=== PATIENT | female | born 1970 | race Caucasian/White ===

== ENCOUNTER → 2016-09-14 | Outpatient (CLI) | payer BC ==
--- NOTE | 2016-09-14 21:55 | REP ---
Clinical: Injury. Technique: Internal rotation, external rotation, and Y view. Findings: Age-related changes involving the acromioclavicular and glenohumeral joints are noted. There is no evidence for acute or healed fracture/dislocation. No osteophytosis, periarticular calcifications, or subacromial space narrowing. Impression: Age-related changes to the right shoulder. No acute fracture dislocation. Signed by Huber Huerta MD 09/14/2016 09:47 P
== END ==
LOC: M WUC 17:21
PROVIDERS: ATTEND Physician Assistant
DX: S40.011A Contusion of right shoulder, initial encounter (principal); X58.XXXA Exposure to other specified factors, initial encounter; Y92.9 Unspecified place or not applicable; Y93.9 Activity, unspecified

== ENCOUNTER → 2017-02-18 | Outpatient (CLI) | payer BC ==
--- NOTE | 2017-02-18 09:24 | REP ---
Yvan Keen chest PA and lateral views: There are no comparisons. The lung barr are clear. The cardiac size is normal The lady, mediastinum, and bony thorax are unremarkable. Impression: Negative PA and lateral chest. Signed by Scott Moralez MD 02/18/2017 09:16 A
[2017-02-18 18:49] LABS: ALBUMIN/GLOBULIN RATIO 1.33 (1.00-1.93); ALKALINE PHOSPHATASE 54 U/L (45-117); ALT/SGPT 23 U/L (12-78); ANION GAP 8 MEQ/L (8-16); AST/SGOT 15 U/L (15-37); BILIRUBIN,TOTAL 0.3 MG/DL (0.2-1.0); BLOOD UREA NITROGEN 11 MG/DL (7-18); CALCIUM LEVEL 9.3 MG/DL (8.5-10.1); CARBON DIOXIDE LEVEL 26 MEQ/L (21-32); CHLORIDE LEVEL 110 MEQ/L (98-107); CHOLESTEROL LEVEL 179 MG/DL (<200); CREATININE FOR GFR 0.68 MG/DL (0.55-1.02); GLOMERULAR FILTRATION RATE > 60.0 (>58); GLUCOSE, FASTING 79 MG/DL (70-105); POTASSIUM SERUM 5.1 MEQ/L (3.5-5.1); SODIUM LEVEL 144 MEQ/L (136-145); TRIGLYCERIDES LEVEL 58 MG/DL (<150)
[2017-02-18 19:03] LABS: BASO # 0.1 K/mm3 (0.0-0.2); BASO % 0.9 % (0.0-1.0); EOS # 0.2 K/mm3 (0.0-0.50); EOS % 2.5 % (0.0-3.0); LYMPH # 2.3 K/mm3 (1.5-4.5); LYMPH % 30.1 % (24.0-44.0); MEAN CORPUSCULAR HGB CONC 33.1 g/dl (32.0-36.5); MEAN CORPUSCULAR VOLUME 93.8 fl (80.0-96.0); MONO # 0.5 K/mm3 (0.0-0.8); MONO % 6.5 % (0.0-5.0); NEUTROPHILS # 4.4 K/mm3 (1.8-7.7); NEUTROPHILS % 58.3 % (36.0-66.0); RED CELL DISTRIBUTION WIDTH 13.9 % (11.5-14.5); WHITE BLOOD COUNT 7.5 K/mm3 (4.0-10.0)
== END ==
LOC: M WUC 08:54
PROVIDERS: ATTEND Physician Assistant Medical
DX: E78.2 Mixed hyperlipidemia (principal); E55.9 Vitamin D deficiency, unspecified; Z72.0 Tobacco use

== ENCOUNTER → 2018-02-03 | Outpatient (CLI) | payer BC, OTHER ==
[2018-02-03 10:16] LABS: BASO # 0.1 10^3/uL (0.0-0.2); BASO % 0.8 % (0.0-1.0); EOS # 0.2 10^3/uL (0.0-0.50); EOS % 1.5 % (0.0-3.0); HEMATOCRIT 39.1 % (36.0-47.0); HEMOGLOBIN 13.2 g/dl (12.0-15.5); IMMATURE GRANULOCYTE % 0.3 % (0-3.0); LYMPH % 19.9 % (24.0-44.0); MEAN CORPUSCULAR HEMOGLOBIN 30.3 pg (27.0-33.0); MEAN CORPUSCULAR HGB CONC 33.8 g/dl (32.0-36.5); MEAN CORPUSCULAR VOLUME 89.9 fl (80.0-96.0); MONO # 0.8 10^3/uL (0.0-0.8); MONO % 7.7 % (0.0-5.0); NEUTROPHILS # 6.8 10^3/uL (1.8-7.7); NEUTROPHILS % 69.8 % (36.0-66.0); PLATELET COUNT, AUTOMATED 377 10^3/uL (150-450); RED BLOOD COUNT 4.35 10^6/uL (4.00-5.40); RED CELL DISTRIBUTION WIDTH 14.1 % (11.5-14.5); WHITE BLOOD COUNT 9.8 10^3/uL (4.0-10.0)
[2018-02-03 10:59] LABS: ALBUMIN 3.9 GM/DL (3.2-5.2); ALKALINE PHOSPHATASE 60 U/L (45-117); ALT/SGPT 16 U/L (12-78); ANION GAP 8 MEQ/L (8-16); AST/SGOT 11 U/L (7-37); BILIRUBIN,TOTAL 0.2 MG/DL (0.2-1.0); BLOOD UREA NITROGEN 10 MG/DL (7-18); CALCIUM LEVEL 8.7 MG/DL (8.5-10.1); CARBON DIOXIDE LEVEL 25 MEQ/L (21-32); CHLORIDE LEVEL 110 MEQ/L (98-107); CHOLESTEROL LEVEL 158 MG/DL (<200); CHOLESTEROL RISK RATIO 2.358 (<5); CREATININE FOR GFR 0.58 MG/DL (0.55-1.30); GLOMERULAR FILTRATION RATE > 60.0 (>58); GLUCOSE, FASTING 79 MG/DL (70-100); HDL CHOLESTEROL 67 MG/DL (>40); NON-HDL-C 91 MG/DL; POTASSIUM SERUM 4.5 MEQ/L (3.5-5.1); SODIUM LEVEL 143 MEQ/L (136-145); TOTAL PROTEIN 6.9 GM/DL (6.4-8.2); TRIGLYCERIDES LEVEL 70 MG/DL (<150)
[2018-02-05 11:19] LABS: TOTAL 25(OH) VITAMIN D 38.7 NG/ML (30.0-100.0)
== END ==
LOC: M LAB 08:59
DX: E55.9 Vitamin D deficiency, unspecified (principal); Z13.220 Encounter for screening for lipoid disorders
CPT/HCPCS: 84443

== ENCOUNTER → 2018-06-01 | Outpatient (CLI) | payer BC | LOC: M WHC 12:44 | DX: Z12.31 Encounter for screening mammogram for malignant neoplasm of breast (principal) | CPT/HCPCS: 77067 ==

== ENCOUNTER → 2019-10-24 | Outpatient (CLI) | payer BC, OTHER ==
--- NOTE | 2019-10-24 15:11 | REPMRS ---
Patient History The patient states she had a clinical breast exam in October 2019. Family history of breast cancer at age 65 in paternal grandmother, breast cancer at age 58 in paternal aunt. Retro-pectoral silicone gel implants in both breasts, June 2017. Benign stereotactic core biopsy of the left breast, December 02, 2008. Took hormonal contraceptives for 4 years. Digital Woman Screen Mammo: October 24, 2019 - Exam #: [id number] Bilateral CC and MLO view(s) were taken. Technologist: Cassie Snow Technologist Prior study comparison: June 01, 2018, bilateral digital woman screen mammo performed at [facility]. July 21, 2016, digital woman screen mammo performed at [facility]. July 01, 2015, digital woman screen mammo performed at [facility]. FINDINGS: The breast tissue is heterogeneously dense. This may lower the sensitivity of mammography. There is a needle biopsy marker clip in the left breast. The visualized implant margins are smooth. Breast parenchymal density pattern is essentially symmetric. No dominant mass, grouped microcalcification, or architectural distortion is evident on either side. 3-D tomosynthesis shows no additional findings. No significant changes when compared with prior studies. Assessment: BI-RADS/ACR category 2 mammogram. Benign Findings. Recommendation Routine screening mammogram of both breasts in 1 year (for women over age 40). This patient's Lifetime Breast Cancer RIsk is estimated at 15.5 %. This mammogram was interpreted with the aid of an FDA-approved computer-aided dectection system. Electronically Signed By: Hal Olivares MD 10/24/19 [id number]
== END ==
LOC: M WHC 12:43
PROVIDERS: ATTEND Nurse Practitioner Family
DX: Z12.31 Encounter for screening mammogram for malignant neoplasm of breast (principal)
CPT/HCPCS: 77063; 77067; 87624; G0123

== ENCOUNTER → 2019-10-24 | Outpatient (CLI) | payer BC, OTHER | LOC: M PLALAB 13:51 | PROVIDERS: ATTEND Nurse Practitioner Family | DX: Z13.79 Encounter for other screening for genetic and chromosomal anomalies (principal) ==

== ENCOUNTER → 2020-09-14 | Outpatient (CLI) | payer BC, OTHER ==
[~2020-09-14] MED LIST: PROHANCE 279.3MG/ML 15ML VIAL As Ordered ONE
--- NOTE | 2020-09-15 09:14 | REP ---
INDICATION: HIGH RISK BREAST CANCER. COMPARISON: Mammogram 10/24/2019. TECHNIQUE: Three Pia MRI imaging was performed with a dedicated breast coil. Axial, coronal, and sagittal T1 and T2 weighted scans were obtained with and without fat saturation in the usual fashion. The study includes dynamically acquired post gadolinium-enhanced imaging with image subtraction. Maximum intensity projection and multi planar reformation imaging is included as well. This study is interpreted with the aid of Pylba, an FDA approved computer aided detection (CAD) software program, on a dedicated breast MRI workstation. The gadolinium enhancement dose is 11 mL of intravenous ProHance. FINDINGS: There is moderate fibroglandular tissue bilaterally. There are bilateral breast implants. There is no evidence of intracapsular or extracapsular rupture. There is no evidence of axillary adenopathy bilaterally. Multiple subcentimeter cysts are seen throughout both breasts. There is mild background parenchymal enhancement. There is a small intramammary lymph node in the upper outer quadrant of the right breast. There is no suspicious enhancing mass or morphologic abnormality. IMPRESSION: BI-RADS category 2, benign bilateral breast MRI. Multiple subcentimeter cysts seen in each breast. No suspicious enhancing mass or morphologic abnormality. Bilateral breast implants with no evidence of intracapsular or extracapsular rupture. <Electronically signed by Scott Hicks > 09/15/20 [id number]
== END ==
LOC: M RAD 15:45
PROVIDERS: ATTEND Nurse Practitioner Family
DX: N60.11 Diffuse cystic mastopathy of right breast (principal); N60.12 Diffuse cystic mastopathy of left breast; Z91.89 Other specified personal risk factors, not elsewhere classified
CPT/HCPCS: A9576; C8908

== ENCOUNTER 2020-12-22 12:52 | Emergency (ER) | payer BC, OTHER ==
[~2020-12-22] VITALS: Ht 160 cm; Wt 54.5 kg
[2020-12-22 13:45] LABS: BASO # 0.1 10^3/uL (0.0-0.2); BASO % 0.9 % (0.0-1.0); EOS # 0.1 10^3/uL (0.0-0.5); EOS % 1.3 % (0.0-3.0); HEMATOCRIT 38.6 % (36.0-47.0); HEMOGLOBIN 12.5 g/dl (12.0-15.5); LYMPH # 2.5 10^3/uL (1.5-5.0); LYMPH % 36.6 % (24.0-44.0); MEAN CORPUSCULAR HEMOGLOBIN 29.8 pg (27.0-33.0); MEAN CORPUSCULAR HGB CONC 32.4 g/dl (32.0-36.5); MEAN CORPUSCULAR VOLUME 91.9 fl (80.0-96.0); MONO # 0.4 10^3/uL (0.0-0.8); MONO % 5.3 % (2.0-8.0); NEUTROPHILS # 3.7 10^3/uL (1.5-8.5); NEUTROPHILS % 55.5 % (36.0-66.0); PLATELET COUNT, AUTOMATED 312 10^3/uL (150-450); WHITE BLOOD COUNT 6.8 10^3/uL (4.0-10.0)
[2020-12-22] MEDS ORDERED: NS 1,000 ML IV ONE (14:15)
[2020-12-22 14:20] LABS: BLOOD UREA NITROGEN 9 MG/DL (7-18); CALCIUM LEVEL 8.9 MG/DL (8.5-10.1); CARBON DIOXIDE LEVEL 26 MEQ/L (21-32); CHLORIDE LEVEL 107 MEQ/L (98-107); CREATININE FOR GFR 0.58 MG/DL (0.55-1.30); FREE T4 0.88 NG/DL (0.76-1.46); GLOMERULAR FILTRATION RATE > 60.0 (>58); GLUCOSE, FASTING 114 MG/DL (70-100); POTASSIUM SERUM 3.7 MEQ/L (3.5-5.1); SODIUM LEVEL 143 MEQ/L (136-145)
[2020-12-22 16:13] VITALS: BP 91/55
--- NOTE | 2020-12-23 07:55 | ECGEPIP ---
[facility] - ED Test Date: 2020-12-22 Pat Name: CHAVEZ TATE Department: Room: - Gender: Female Reconciler: marty : 1970 Requested By: Nicole Mendoza Order Number: [id number] Reading MD: Kwaku Daniel Measurements Intervals [place] Rate: 61 P: 77 UT: 160 QRS: 76 QRSD: 88 T: 81 QT: 404 QTc: 406 Interpretive Statements Normal sinus rhythm with sinus arrhythmia Minimal voltage criteria for LVH, may be normal variant ( Braden product ) NO PRIORS FOR COMPARISON Electronically Signed on 12-23-2020 7:55:24 EDT by Kwaku Daniel
== END 2020-12-22 16:29 | disposition home or self-care (01) ==
LOC: M ED 12:52 → EDBD 12:52 → M ED 16:29
DX: R55 Syncope and collapse (principal); F17.200 Nicotine dependence, unspecified, uncomplicated

== ENCOUNTER → 2021-01-18 | Outpatient (CLI) | payer BC, OTHER ==
--- NOTE | 2021-01-18 17:48 | REPVR ---
PROCEDURE INFORMATION: Exam: CT Head Without Contrast Exam date and time: 01/18/2021 5:24 PM Age: 50 years old Clinical indication: Syncope and collapse TECHNIQUE: Imaging protocol: Computed tomography of the head without contrast. Axial and coronal reformatted images were created and reviewed. Radiation optimization: All CT scans at this facility use at least one of these dose optimization techniques: automated exposure control; mA and/or kV adjustment per patient size (includes targeted exams where dose is matched to clinical indication); or iterative reconstruction. COMPARISON: No relevant prior studies available. FINDINGS: Brain: No CT evidence of acute intracranial hemorrhage or acute territorial infarction. No significant mass effect or midline shift. Basal cisterns patent. Cerebral ventricles: Normal in size and configuration. Bones/joints: No acute osseous abnormality. Paranasal sinuses: Unremarkable. No fluid levels. Mastoid air cells: Grossly unremarkable. Soft tissues: Grossly unremarkable. IMPRESSION: No CT evidence of acute intracranial pathology. Electronically signed by: Jerald Rader On 01/18/2021 17:48:28 PM
== END ==
LOC: M RAD 17:19
PROVIDERS: ATTEND Nurse Practitioner Family
DX: R55 Syncope and collapse (principal)

== ENCOUNTER → 2021-07-04 | Outpatient (CLI) | payer BC, OTHER ==
[2021-07-04 10:43] LABS: HEMOGLOBIN A1c 5.3 %
[2021-07-05 10:02] LABS: TOTAL 25(OH) VITAMIN D 24.1 NG/ML (30.0-100.0)
== END ==
LOC: M LAB 10:04
PROVIDERS: ATTEND Nurse Practitioner Family
DX: E55.9 Vitamin D deficiency, unspecified (principal); Z13.220 Encounter for screening for lipoid disorders

== ENCOUNTER → 2021-08-04 | Outpatient (CLI) | payer BC, OTHER ==
--- NOTE | 2021-08-04 16:19 | REPMRS ---
Patient History The patient states she had a clinical breast exam in July 2021. Patient is postmenopausal. Family history of breast cancer at age 65 in paternal grandmother, breast cancer at age 58 in paternal aunt. Retro-pectoral silicone gel implants in both breasts, June 2017. Benign stereotactic core biopsy of the left breast, December 02, 2008. Took hormonal contraceptives for 4 years. Tomosynthesis is performed. Volpara breast density is d. Tyrer-zick lifetime risk of breast cancer 14.0%. Patient states no breast complaints today. Patient has signed MRS History Sheet. Digital Woman Screen Mammo: August 04, 2021 - Exam #: [id number] Bilateral CC and MLO view(s) were taken. Technologist: Shazia Whittologist Prior study comparison: October 24, 2019, bilateral digital woman screen mammo performed at [facility] [place]. June 01, 2018, bilateral digital woman screen mammo performed at [facility] [place]. FINDINGS: The breast tissue is heterogeneously dense. This may lower the sensitivity of mammography. There is a fairly symmetric fibroglandular pattern in both breasts. There has been no interval development of masses, areas of architectural distortion or clusters of microcalcifications typical of malignancy. Bilateral breast implants appear intact. Biopsy clip is again seen in the upper outer quadrant of the left breast. Assessment: BI-RADS/ACR category 2 mammogram. Benign Findings. Recommendation Routine screening mammogram of both breasts in 1 year (for women over age 40). This mammogram was interpreted with the aid of an FDA-approved computer-aided dectection system. Electronically Signed By: Scott Hicks MD 08/04/21 [id number]
== END ==
LOC: M WHC 14:55
PROVIDERS: ATTEND Nurse Practitioner Women's Health
DX: Z12.31 Encounter for screening mammogram for malignant neoplasm of breast (principal); Z80.3 Family history of malignant neoplasm of breast; Z98.82 Breast implant status

== ENCOUNTER → 2021-08-04 | Outpatient (REF) | payer BC, OTHER | LOC: M SFHCWAGY 17:12 | PROVIDERS: ATTEND Nurse Practitioner Women's Health | DX: Z12.4 Encounter for screening for malignant neoplasm of cervix (principal) ==

== ENCOUNTER → 2022-03-11 | Outpatient (CLI) | payer BC, OTHER ==
[~2022-03-11] MED LIST changes: -PROHANCE 279.3MG/ML 15ML VIAL As Ordered ONE; +PROHANCE 279.3MG/ML 5ML VIAL As Ordered ONE
== END ==
LOC: M RAD 09:54
PROVIDERS: ATTEND Nurse Practitioner Family
DX: Z12.31 Encounter for screening mammogram for malignant neoplasm of breast (principal)

== ENCOUNTER 2022-06-30 10:10 | Emergency (ER) | payer BC, OTHER ==
[~2022-06-30] VITALS: Ht 160 cm; Wt 52.0 kg
[2022-06-30 10:11] VITALS: BP 132/71
== END 2022-06-30 13:00 | disposition home or self-care (01) ==
LOC: M ED 10:10
DX: S00.83XA Contusion of other part of head, initial encounter (principal); S06.0X0A Concussion without loss of consciousness, initial encounter; W50.0XXA Accidental hit or strike by another person, initial encounter; F17.200 Nicotine dependence, unspecified, uncomplicated

== ENCOUNTER → 2022-12-28 | Outpatient (CLI) | payer BC, OTHER | LOC: M WHC 07:40 | PROVIDERS: ATTEND Nurse Practitioner Family | DX: Z12.31 Encounter for screening mammogram for malignant neoplasm of breast (principal) ==

== ENCOUNTER → 2022-12-28 | Outpatient (REF) | payer OTHER, BC | LOC: M SFHCWAGY 10:58 | PROVIDERS: ATTEND Nurse Practitioner Family | DX: Z12.4 Encounter for screening for malignant neoplasm of cervix (principal); Z01.419 Encounter for gynecological examination (general) (routine) without abnormal findings; Z77.9 Other contact with and (suspected) exposures hazardous to health ==

== ENCOUNTER → 2023-07-07 | Outpatient (CLI) | payer BC, OTHER ==
[~2023-07-07] MED LIST changes: -PROHANCE 279.3MG/ML 5ML VIAL As Ordered ONE; +PROHANCE 279.3MG/ML 5ML VIAL ONE
== END ==
LOC: M PLAIMG 07:58
PROVIDERS: ATTEND Nurse Practitioner Family
DX: Z91.89 Other specified personal risk factors, not elsewhere classified (principal); N60.09 Solitary cyst of unspecified breast
CPT/HCPCS: A9576; C8908

== ENCOUNTER → 2024-02-13 | Outpatient (CLI) | payer BC | LOC: M WHC 07:41 | PROVIDERS: ATTEND Nurse Practitioner Family | DX: Z12.31 Encounter for screening mammogram for malignant neoplasm of breast (principal) ==

== ENCOUNTER → 2024-07-08 | Outpatient (CLI) | payer BC ==
[2024-07-08 10:09] LABS: BASO # 0.1 10^3/uL (0.0-0.2); BASO % 1.5 % (0.0-1.0); EOS # 0.1 10^3/uL (0.0-0.5); EOS % 1.3 % (0.0-3.0); HEMATOCRIT 41.3 % (36.0-47.0); HEMOGLOBIN 13.7 g/dl (12.0-15.5); LYMPH # 1.7 10^3/uL (1.5-5.0); LYMPH % 27.6 % (24.0-44.0); MEAN CORPUSCULAR HEMOGLOBIN 30.6 pg (27.0-33.0); MEAN CORPUSCULAR HGB CONC 33.2 g/dl (32.0-36.5); MEAN CORPUSCULAR VOLUME 92.2 fl (80.0-96.0); MONO # 0.4 10^3/uL (0.0-0.8); MONO % 7.2 % (2.0-8.0); NEUTROPHILS # 3.8 10^3/uL (1.5-8.5); NEUTROPHILS % 62.2 % (36.0-66.0); PLATELET COUNT, AUTOMATED 426 10^3/uL (150-450); RED BLOOD COUNT 4.48 10^6/uL (4.00-5.40); WHITE BLOOD COUNT 6.1 10^3/uL (4.0-10.0)
[2024-07-08 10:36] LABS: CHOLESTEROL RISK RATIO 2.62 (<5); HDL CHOLESTEROL 67.5 MG/DL (>40); LDL CHOLESTEROL 97.9 MG/DL (<100); NON-HDL-C 109.5 MG/DL
[2024-07-08 10:40] LABS: ALKALINE PHOSPHATASE 63 U/L (35-104); ALT/SGPT 14 U/L (7.0-40); AST/SGOT 13 U/L (<34); BILIRUBIN,TOTAL 0.4 MG/DL (0.3-1.2); BLOOD UREA NITROGEN 9 MG/DL (9-23); CARBON DIOXIDE LEVEL 28 MMOL/L (20-31); CHLORIDE LEVEL 108 MMOL/L (98-107); CREATININE FOR GFR 0.65 MG/DL (0.55-1.30); GLOMERULAR FILTRATION RATE > 60.0 (>51); GLUCOSE, FASTING 77 MG/DL (60-100); POTASSIUM SERUM 4.6 MMOL/L (3.5-5.1); SODIUM LEVEL 139 MMOL/L (136-145); THYROID STIMULATING HORMONE 1.547 uIU/ML (0.55-4.78)
== END ==
LOC: M LAB 08:03
PROVIDERS: ATTEND Nurse Practitioner Family
DX: E55.9 Vitamin D deficiency, unspecified (principal)

== ENCOUNTER → 2025-06-11 | Outpatient (CLI) | payer BC | LOC: M WHC 13:15 | PROVIDERS: ATTEND Nurse Practitioner Family | DX: Z12.31 Encounter for screening mammogram for malignant neoplasm of breast (principal) ==

== ENCOUNTER → 2025-06-23 | Outpatient (CLI) | payer BC ==
[2025-06-23 10:33] LABS: BASO # 0.1 10^3/uL (0.0-0.2); BASO % 1.5 % (0.0-1.0); EOS # 0.2 10^3/uL (0.0-0.5); EOS % 2.2 % (0.0-3.0); LYMPH # 2.5 10^3/uL (1.5-5.0); LYMPH % 35.3 % (24.0-44.0); MONO # 0.6 10^3/uL (0.0-0.8); MONO % 8.6 % (2.0-8.0); NEUTROPHILS # 3.7 10^3/uL (1.5-8.5); NEUTROPHILS % 52.1 % (36.0-66.0); PLATELET COUNT, AUTOMATED 434 10^3/uL (150-450)
[2025-06-23 11:04] LABS: ALT/SGPT 13 U/L (7.0-40); AST/SGOT 19 U/L (<34); CALCIUM LEVEL 9.2 MG/DL (8.5-10.1); CARBON DIOXIDE LEVEL 26 MMOL/L (20-31); CHLORIDE LEVEL 107 MMOL/L (98-107); CHOLESTEROL LEVEL 172 MG/DL (<200); CHOLESTEROL RISK RATIO 2.44 (<5); CREATININE FOR GFR 0.64 MG/DL (0.55-1.30); GLOMERULAR FILTRATION RATE > 90.0 (>51); LDL CHOLESTEROL 88.2 MG/DL (<100); NON-HDL-C 101.6 MG/DL; POTASSIUM SERUM 4.7 MMOL/L (3.5-5.1); SODIUM LEVEL 142 MMOL/L (136-145); TRIGLYCERIDES LEVEL 67 MG/DL (<150)
== END ==
LOC: M PLALAB 08:56
PROVIDERS: ATTEND Nurse Practitioner Family
DX: Z13.220 Encounter for screening for lipoid disorders (principal); J44.9 Chronic obstructive pulmonary disease, unspecified

== ENCOUNTER → 2025-08-19 | Outpatient (CLI) | payer BC | LOC: M RAD 13:48 | PROVIDERS: ATTEND Nurse Practitioner Family | DX: Z87.891 Personal history of nicotine dependence (principal) ==